=== PATIENT | male | born 1985 | race Caucasian/White ===

== ENCOUNTER 2024-09-09 06:04 | Day surgery (SDC) | payer BC, SELFPAY ==
[2024-09-09] VITALS (7 sets, daily range): BP systolic 109–138; BP diastolic 64–86; BMI 40.8
[2024-09-09] MEDS: CELEBREX 200 MG PO (06:33)
[2024-09-09] MEDS: TYLENOL 1000 MG PO (06:33)
[2024-09-09] MEDS: VANCOCIN 540 MG IV (06:51)
[2024-09-09] MEDS: ROXICODONE 5 MG PO (08:52)
[2024-09-09] MEDS: TORADOL 15 MG IV (08:57)
--- NOTE | 2024-09-09 08:58 | SUR.PHASEI ---
explained to patient to expect some pain, numbness left foot, but some pain/discomfort in heel expected, discharge to [facility]
== END 2024-09-09 09:25 | disposition home or self-care (01) ==
LOC: SDS 06:04
PROVIDERS: ATTENDING PHYSICIAN Student in an Organized Health Care Education/Training Program
PROC: 0J8R3ZZ Division of Left Foot Subcutaneous Tissue and Fascia, Percutaneous Approach (ICD-10-PCS; 2024-09-09)
DX: M72.2 Plantar fascial fibromatosis (principal)
CPT/HCPCS: 29893

== ENCOUNTER 2024-10-14 06:28 | Emergency (ER) | payer BC, SELFPAY ==
[2024-10-14 06:30] VITALS: BP 148/114
--- NOTE | 2024-10-14 06:45 | ED.GENMED ---
History of Present Illness
<Catracho Dowd MD, Resident - Last Filed: 10/14/24 10:46>
General
Chief Complaint: Abdominal Symptoms
Source: patient
Exam Limitations: none
Time Seen by Provider: 10/14/24 06:41
Nursing documentation reviewed up to this point in time: agreed with
History of Present Illness
History of Present Illness:
This is a 39-year-old male history of essential hypertension, anxiety, depression, sleep apnea, heroin abuse (sober since 2016), who presented to the ED with complaints of therapy manager abdominal pain with intermittent vomiting, black liquid stool,
and unintentional weight loss. His abdominal pain is rated 8/10 and resolves within 1 to 2 hours after vomiting. He reports that he has been taking Pepto-Bismol. Patient reports that his symptoms are almost daily for the past 6 months and he has
also noticed a 30lb unintentional weight loss in the past 2 months. He does not drink alcohol but recently started smoking marijuana about 4 months ago to help with his appetite. Patient has a family history of lung cancer in father, ovarian
cancer in mother, and is worried that he has cancer causing his weight loss. He denies chest pain, shortness of breath, palpitations, swelling, fever and chills.
Past History
<Catracho Dowd MD, Resident - Last Filed: 10/14/24 10:46>
Past History
ED Past Medical History: Asthma, HTN, Psychiatric (Depression, substance abuse) and Other (Overdose, heroin abuse)
ED Past Surgical History: Other (Mandible fracture with repair)
Social History
Tobacco: Smoker
Alcohol: None
Drug: IVDA (Heroin (sober since 2016))
Personal: Single
Living: with roommate
Employment: Employed ([employer])
Family History
Family History: Other (Unknown)
Review of Systems
<Catracho Dowd MD, Resident - Last Filed: 10/14/24 10:46>
Review of Systems
Constitutional: Reports no symptoms
EENT: Reports no symptoms
Respiratory: Reports no symptoms
Cardiac: Reports no symptoms
ABD/GI: Reports abdominal pain (LLQ) and diarrhea
: Reports no symptoms
Musculoskeletal: Reports no symptoms
Skin: Reports no symptoms
Neurological: Reports no symptoms
Endocrine: Reports no symptoms
Hematologic/Lymphatic: Reports no symptoms
Psychiatric: Reports depression and anxiety
Phy Exam
<Catracho Dowd MD, Resident - Last Filed: 10/14/24 10:46>
General Physical Exam
General Presentation: well appearing and no apparent distress
General age: appears stated age
General Skin: warm and dry
General Habitus: obese
General Mental: alert
General Hydration: appears well hydrated
ENT Exam
ENT Exam: neck supple and normocephalic
Cardiovascular Exam
Cardiovascular Exam: regular rate/rhythm, no edema, no gallop, no murmur and normal peripheral pulses
Pulmonary Exam
Pulmonary Exam: lungs clear, no respiratory distress, no crackles, no rhonchi, no wheezing and no cough
Gastrointestinal Exam
Gastrointestinal Exam: normal bowel sounds, non tender, soft, no organomegaly, tender (LLQ) and other (Obese abdomen)
Palpation: left lower quadrant: Mild tenderness
Auscultation of Abdomen: normal
Rectal Exam: normal external exam, normal sphincter tone, no rectal mass and no stool
Skin Exam
Skin Exam: normal color and warm/dry
Psychiatric Exam
Psychiatric Exam: normal mood/affect
Course
<Catracho Dowd MD, Resident - Last Filed: 10/14/24 10:46>
Orders/Labs/Results
Orders:
Orders
10/14/24 07:24
Lorazepam [Ativan] 1 mg IV NOW STA
Oseltamivir Phosphate [Tamiflu] 75 mg PO NOW STA
10/14/24 07:38
CT Abd/pelvis W Iv Cont Urgent
Comment: BMI >25
Reason For Exam: LLQ abdominal pain, vomiting
10/14/24 07:53
BMP [Basic Metabolic Panel] Stat
CBC/With Diff [Complete Blood Count/With Diff] Stat
Lactic Acid Stat
Abnormal Lab Results
10/14/24
07:53
WBC 4.0 L 10^3/uL
(4.8-10.8)
MCH 31.5 H pg
(27.0-31.0)
MPV 11.2 H fL
(7.4-10.4)
10/14/24 07:53
10/14/24 07:53
Vital Signs
Initial and Last Documented VS:
Initial Vital Signs
Temp Pulse Resp BP Pulse Ox
98.3 F 74 22 148/114 94
10/14/24 06:30 10/14/24 06:30 10/14/24 06:30 10/14/24 06:30 10/14/24 06:30
Last Documented Vital Signs
Temp Pulse Resp BP Pulse Ox
98.3 F 71 16 118/78 95
10/14/24 06:30 10/14/24 09:30 10/14/24 10:00 10/14/24 09:30 10/14/24 09:30
<Govind Feliciano, DO - Last Filed: 10/14/24 10:41>
Orders/Labs/Results
Orders:
Orders
10/14/24 07:24
Lorazepam [Ativan] 1 mg IV NOW STA
Oseltamivir Phosphate [Tamiflu] 75 mg PO NOW STA
10/14/24 07:38
CT Abd/pelvis W Iv Cont Urgent
Comment: BMI >25
Reason For Exam: LLQ abdominal pain, vomiting
10/14/24 07:53
BMP [Basic Metabolic Panel] Stat
CBC/With Diff [Complete Blood Count/With Diff] Stat
Lactic Acid Stat
Abnormal Lab Results
10/14/24
07:53
WBC 4.0 L 10^3/uL
(4.8-10.8)
MCH 31.5 H pg
(27.0-31.0)
MPV 11.2 H fL
(7.4-10.4)
10/14/24 07:53
10/14/24 07:53
Vital Signs
Initial and Last Documented VS:
Initial Vital Signs
Temp Pulse Resp BP Pulse Ox
98.3 F 74 22 148/114 94
10/14/24 06:30 10/14/24 06:30 10/14/24 06:30 10/14/24 06:30 10/14/24 06:30
Last Documented Vital Signs
Temp Pulse Resp BP Pulse Ox
98.3 F 71 16 118/78 95
10/14/24 06:30 10/14/24 09:30 10/14/24 10:00 10/14/24 09:30 10/14/24 09:30
<Catracho Dowd MD, Resident - Last Filed: 10/14/24 10:46>
MDM/Problems Addressed
Differential Diagnosis Includes:
Marijuana use disorder, methadone side effects,
MDM/Problems Addressed:
39-year-old male who came to the emergency department with complaints of LLQ abdominal pain, unintentional weight loss, intermittent nausea and vomiting, and black stool.
CT abdomen and pelvis pending
Chronic conditions affecting care: HTN and Psychiatric illness (Anxiety, depression sleep apnea)
<Catracho Dowd MD, Resident - Last Filed: 10/14/24 10:46>
*Critical Care Note
Total Time (30-74mins, 75-104mins- exclusive of procedures): Not Applicable
<Catracho Dowd MD, Resident - Last Filed: 10/14/24 10:46>
Update Note
Update Note:
CT abdomen and pelvis with IV contrast
1. Mild circumferential wall thickening in the transverse and descending colon. Diagnostic possibilities are (1) a mild acute colitis or (2) under distention of the colonic lumen.
2. MODERATE to SEVERE DIFFUSE HEPATIC STEATOSIS.
3. Mild hepatosplenomegaly.
4. Moderate discogenic degenerative disease at L5/S1.
ED Attending Note
<Catracho Dowd MD, Resident - Last Filed: 10/14/24 10:46>
-
Portions of this chart may have been created with voice recognition software.� Occasional wrong word or��sound alike� substitutions may have occurred due to the inherent limitations of voice recognition software.
<Govind Feliciano, DO - Last Filed: 10/14/24 10:41>
ED Attending Note
Patient seen and examined by attending physician: Yes
I performed a history and physical exam of patient and discussed management with resident, I reviewed resident's note and agree with documented findings and plan of care.: Yes
ED Attending Note:
I reviewed and agree with history and treatment plan by Catracho Dowd MD. my exam revealed 39-year-old male with mild left lower quadrant abdominal tenderness. No rebound or guarding. CT abdomen pelvis shows hepatosplenomegaly, hepatic steatosis
and mild bowel wall thickening. Doubt acute colitis. Patient stable for discharge and follow-up with primary care. Will refill patient's bupropion for 1 month so he can get to primary care.
Discharge Plan
Departure
Patient Disposition: Home (Routine Discharge)
Date of Disposition: 10/14/24
Time of Disposition: 10:10
Patient with high blood pressure during this ER visit?: No
Condition: Good
Covid-19: Not Applicable
Discharge Problem:
Fatty liver disease, nonalcoholic, Essential hypertension, Degenerative disc disease at L5-S1 level, Apnea, sleep
Instructions: Diarrhea in teens and adults, Metabolic dysfunction-associated steatotic liver disease, Abdominal Pain
Prescriptions:
New
bupropion HCl 300 mg tablet extended release 24 hr
300 mg PO DAILY Qty: 30 0RF
No Action
metoprolol succinate 200 mg Tablet Extended Release 24 Hr
200 mg PO DAILY
bupropion HCl 300 mg Tablet Extended Release 24 Hr
300 mg PO DAILY
fluticasone propion-salmeterol [Advair Diskus] 250-50 mcg/dose Blister With Device
1 inh INHALATION R BIDPRN PRN (Reason: SOB)
lisinopril-hydrochlorothiazide 20-12.5 mg Tablet
1 tab PO DAILY
bismuth subsalicylate [Pepto-Bismol] 262 mg/15 mL Suspension
262 mg PO DAILYPRN PRN (Reason: DIARRHEA)
gabapentin 300 mg Capsule
300 mg PO TID
methadone [Methadone Intensol] 10 mg/mL Concentrate
115 mg PO DAILY
methadone [Methadone Intensol] 10 mg/mL Concentrate
70 mg PO QPM
Referrals:
Judy Bhatti MD, Resident [Family Practice Resident Year2] - Follow up in 1 week
Josselyn Mcknight, [Active] - Follow up in 5-7 days (Patient with abdominal pain, intermittent vomiting with CT ABD/pelvis significant for hepatic steatosis and mild hepatosplenomegaly.)
UNKNOWN - PT DOES,NOT KNOW [Family Provider] -
Interventions
Interventions:
*Risk Screen - Suicide Last Done: 10/14/24 06:30
*General Assessment Last Done: 10/14/24 07:24
*Neglect/Abuse Screening Last Done: 10/14/24 06:30
*ED COVID-19 Vaccine History Last Done: 10/14/24 07:24
YA-Svcejq-Fnsabzgybq Assessment Last Done: 10/14/24 07:24
Discharge Date and Time
Print Language: TOGOLESE
[2024-10-14 07:26] VITALS: BP 108/70
[2024-10-14 08:05] LABS: % Eosinophils 5.2 % (0-6); % Immature Granulocytes 0.5 % (0-0.5); % Lymphocytes 32.2 % (20.5-51.1); % Monocytes 8.5 % (1.7-9.3); % Neutrophils 52.6 % (42.2-75.2); Absolute Eosinophils 0.2 10^3/uL (0-0.7); Absolute Lymphocytes 1.3 10^3/uL (1.2-3.4); Absolute Monocytes 0.3 10^3/uL (0.1-0.6); Absolute Neutrophils 2.1 10^3/uL (1.4-6.5); Hematocrit 47.5 % (39.0-52.0); Hemoglobin 16.1 g/dL (13.0-18.0); Mean Corp Hgb Conc. 33.9 g/dL (33.0-37.0); Mean Corpuscular Hgb 31.5 pg (27.0-31.0); Mean Platelet Volume 11.2 fL (7.4-10.4); Nucleated Red Blood Cells % 0 % (-); Platelet Count 164 10^3/uL (130-400); Red Blood Cell Count 5.11 10^6/uL (4.70-6.10); Red Cell Dist. Width 12.5 % (11.5-14.5)
[2024-10-14 08:15] LABS: Lactic Acid 1.5 mmol/L (0.7-2.0)
[2024-10-14 08:16] LABS: Blood Urea Nitrogen 16 mg/dl (9-20); Calcium 9.1 mg/dl (8.4-10.2); Carbon Dioxide 29 mmol/L (22-30); Chloride 102 mmol/L (98-107); Glucose 96 mg/dl (70-99); Potassium 4.4 mmol/L (3.5-5.1); Sodium 138 mmol/L (135-145); eGFR > 60.00
[2024-10-14 09:30] VITALS: BP 118/78
[2024-10-14 10:51] VITALS: BP 108/74
== END 2024-10-14 10:57 | disposition home or self-care (01) ==
LOC: EMR 06:28
PROVIDERS: Student in an Organized Health Care Education/Training Program; EMERGENCY PHYSICIAN Emergency Medicine
DX: R10.32 Left lower quadrant pain (principal); K76.0 Fatty (change of) liver, not elsewhere classified; I10 Essential (primary) hypertension; G47.30 Sleep apnea, unspecified; M51.379 Other intervertebral disc degeneration, lumbosacral region without mention of lumbar back pain or lower extremity pain; J45.909 Unspecified asthma, uncomplicated; F17.200 Nicotine dependence, unspecified, uncomplicated
CPT/HCPCS: 99284; 74177; 80048; 83605; 85025; Q9967

== ENCOUNTER → 2024-10-14 11:17 | Outpatient (REF) | payer BC, SELFPAY ==
[2024-10-14 13:03] LABS: % Basophils 0.9 % (0-2); % Eosinophils 4.1 % (0-6); % Immature Granulocytes 0.2 % (0-0.5); % Lymphocytes 33.3 % (20.5-51.1); % Monocytes 7.5 % (1.7-9.3); Absolute Basophils 0.1 10^3/uL (0-0.2); Absolute Eosinophils 0.2 10^3/uL (0-0.7); Absolute Lymphocytes 1.8 10^3/uL (1.2-3.4); Absolute Monocytes 0.4 10^3/uL (0.1-0.6); Absolute Neutrophils 2.9 10^3/uL (1.4-6.5); Hematocrit 49.7 % (39.0-52.0); Hemoglobin 17.2 g/dL (13.0-18.0); Mean Corp Hgb Conc. 34.6 g/dL (33.0-37.0); Mean Corpuscular Hgb 31.6 pg (27.0-31.0); Mean Corpuscular Volume 91.4 fL (80.0-94.0); Mean Platelet Volume 11.7 fL (7.4-10.4); Nucleated Red Blood Cells % 0 % (-); Platelet Count 197 10^3/uL (130-400); Red Blood Cell Count 5.44 10^6/uL (4.70-6.10); Red Cell Dist. Width 12.6 % (11.5-14.5); White Blood Cell Count 5.3 10^3/uL (4.8-10.8)
[2024-10-14 13:04] LABS: ALT (SGPT) 83 U/L (0-50); AST (SGOT) 38 U/L (17-59); Albumin 4.8 g/dl (3.5-5.0); Alkaline Phosphatase 60 U/L (38-126); Blood Urea Nitrogen 16 mg/dl (9-20); Calcium 9.7 mg/dl (8.4-10.2); Carbon Dioxide 30 mmol/L (22-30); Chloride 100 mmol/L (98-107); Glucose 88 mg/dl (70-99); HDL Cholesterol 34 mg/dl; LDL Cholesterol, Calculated 142 mg/dl; Potassium 4.7 mmol/L (3.5-5.1); Sodium 139 mmol/L (135-145); Total Bilirubin 0.6 mg/dl (0.2-1.3); Total Cholesterol 248 mg/dl (50-199); Total Protein 7.6 g/dl (6.3-8.2); Triglyceride 364 mg/dl (10-149); Very Low Density Lipoprotein 72 mg/dl (0-30); eGFR > 60.00
[2024-10-14 13:31] LABS: Urine Albumin Trace (Neg - Trace); Urine Bilirubin Negative (Negative); Urine Character Slightly Cloudy (Clear); Urine Color Yellow; Urine Glucose Negative (Negative); Urine Ketone Negative (Negative); Urine Leukocyte Negative (Negative); Urine Nitrite Negative (Negative); Urine Occult Blood Negative (Negative); Urine Urobilinogen Negative (Neg - 1+)
[2024-10-14 14:45] LABS: TSH Reflex To Free T4 1.19 uIU/ml (0.47-4.68)
[2024-10-16 18:35] LABS: % Free Testosterone 1.8 % (1.6-2.9); Free Testosterone 23 pg/mL (47-244); Sex Hormone Binding Globulin 31 nmol/L (17-56); Total Testosterone 130 ng/dL (300-1080)
== END ==
LOC: RAD 11:17
PROVIDERS: ATTENDING PHYSICIAN Physician Assistant
DX: I10 Essential (primary) hypertension (principal); F32.9 Major depressive disorder, single episode, unspecified; E29.1 Testicular hypofunction
CPT/HCPCS: 36415; 80053; 80061; 81003; 84270; 84402; 84403; 84443; 85025

== ENCOUNTER 2024-11-02 09:14 | Emergency (ER) | payer BC, SELFPAY ==
[2024-11-02 09:22] VITALS: BP 159/110
[2024-11-02 10:55] VITALS: BMI 38.0
[2024-11-02 11:24] VITALS: BP 186/105
--- NOTE | 2024-11-02 11:26 | ED.GENMED ---
History of Present Illness
General
Chief Complaint: Abdominal Symptoms
Source: patient
Exam Limitations: none
Time Seen by Provider: 11/02/24 10:57
Nursing documentation reviewed up to this point in time: agreed with
History of Present Illness
History of Present Illness:
Patient is a 39-year-old male presenting to the emergency department with intractable nausea, vomiting, and diarrhea since yesterday. Patient states symptoms started around 12:30 AM last night, waking him from sleep. He describes a somewhat
diffuse abdominal pain and persistent nausea, vomiting, diarrhea. No hematemesis or hematochezia. Patient unable to tolerate any p.o. intake. He has been unable to take his methadone given nausea/vomiting. Patient reports cold sweats although
denies any known fever.
No known sick contacts. No associated chest pain or shortness of breath.
Of note�patient does report that he has been seeing a GI doctor through [facility] given recent weight loss and GI symptoms.
Patient has been on methadone for 8 years.
Past History
Past History
ED Past Medical History: Asthma, HTN, Psychiatric (Depression, substance abuse) and Other (Overdose, heroin abuse)
ED Past Surgical History: Other (Mandible fracture with repair)
Social History
Tobacco: Smoker
Alcohol: None
Drug: IVDA (Heroin (sober since 2017))
Personal: Single
Living: with roommate
Employment: Employed ([employer])
Family History
Family History: Other (Unknown)
Review of Systems
Review of Systems
Allergies reviewed?: Yes
All Other Systems: ROS reviewed and negative except as documented in HPI and ROS
Phy Exam
Physical Exam
Physical Exam:
Vitals: Hypertensive, otherwise stable vital signs. Afebrile
General: In no apparent distress.
Skin: Warm and dry, no rashes or lesions
Head: Normocephalic, atraumatic
Eyes: Sclera nonicteric. EOMs intact. No nystagmus.
Throat: Protecting airway
Neck: Normal ROM, no cervical spine tenderness, no meningismus
Cardiac: Regular rate and rhythm, no murmurs.
Pulm: Normal respiratory effort, no wheezes, rales, rhonchi heard on exam.
Abdomen: Abdomen soft. Mild diffuse abdominal tenderness that rebound tenderness or guarding. No CVA tenderness
Extremities: No evidence of cyanosis or edema
Neuro: AAOx3. Grossly intact.
Psychiatric: Normal affect.
Course
Orders/Labs/Results
Orders:
Orders
11/02/24 11:10
Electrocardiogram (*1) Urgent
Reason for Study: Abdominal Pain
EKG- Treatment ONCE
0.9% Sodium Chloride 1000 ml [Nss] 1,000 ml IV BOLUS
Famotidine [Pepcid] 20 mg IV NOW STA
Ketorolac [Toradol] 15 mg IV NOW STA
Ondansetron Injectable [Zofran] 4 mg IV NOW STA
11/02/24 11:35
Complete Blood Count/With Diff Urgent
Comprehensive Metabolic Panel Urgent
Lipase Urgent
11/02/24 13:09
COVID-19 Antigen Urgent
Source: Nasal Swab
Influenza A+B Rapid Molecular Urgent
RACIEL Source: Nasal Swab
Specimen Description:
Ondansetron Injectable [Zofran] 4 mg IV NOW STA
Abnormal Lab Results
11/02/24
11:35
MCH 31.2 H pg
(27.0-31.0)
MPV 11.1 H fL
(7.4-10.4)
Abs Immat Gran (auto) 0.1 H 10^3/uL
(0-0.05)
Absolute Neuts (auto) 6.7 H 10^3/uL
(1.4-6.5)
Absolute Lymphs (auto) 0.9 L 10^3/uL
(1.2-3.4)
Absolute Monos (auto) 0.8 H 10^3/uL
(0.1-0.6)
Immature Gran % 0.6 H %
(0-0.5)
Neutrophils % 77.6 H %
(42.2-75.2)
Lymphocytes % 10.8 L %
(20.5-51.1)
Carbon Dioxide 31 H mmol/L
(22-30)
Glucose 102 H mg/dl
(70-99)
ALT 65 H U/L
(0-50)
Albumin 5.2 H g/dl
(3.5-5.0)
11/02/24 11:35
11/02/24 11:35
Vital Signs
Initial and Last Documented VS:
Initial Vital Signs
Temp Pulse Resp BP Pulse Ox
98.4 F 51 22 159/110 98
11/02/24 09:22 11/02/24 09:22 11/02/24 09:22 11/02/24 09:22 11/02/24 09:22
Last Documented Vital Signs
Temp Pulse Resp BP Pulse Ox
97.9 F 87 18 152/94 98
11/02/24 11:24 11/02/24 12:08 11/02/24 12:08 11/02/24 13:00 11/02/24 11:24
MDM/Problems Addressed
Differential Diagnosis Includes:
Not limited to: Viral gastroenteritis, pancreatitis, gastritis, cholecystitis, etc.
MDM/Problems Addressed:
39-year-old male presenting with intractable nausea, vomiting, diarrhea since last night. No known fevers or localized abdominal pain. No dysuria. Patient unable to tolerate his prescribed methadone by mouth. Patient initially hypertensive on
arrival although somewhat improved with my assessment. Otherwise signs are stable. He is afebrile. On exam�patient is in no apparent distress. Abdomen is soft with mild diffuse tenderness. No rebound tenderness or guarding. No focal tenderness
on abdominal exam. Cardio/pulmonary assessment unremarkable. Patient is perfusing well. History and exam consistent with possible viral gastroenteritis. Will check labs, viral swabs. Will treat symptoms with Zofran, Toradol, PPI, and fluids.
Will monitor closely reassess.
Update: Labs reviewed. No clinically significant abnormalities. There is no leukocytosis. Overall�low suspicion for acute intra-abdominal infection given patient is afebrile with no leukocytosis and a benign abdominal exam.
Update: Into reassess patient at bedside who states he feels '100 times better than arrival'. He has not had any vomiting since arrival. He received a liter of fluids. He is tolerating water without nausea/vomiting. He was able to take his
methadone by mouth, as well. Abdomen remains soft and minimally diffusely tender. Feel patient is stable for discharge home w/ close return precautions. Will send a few Zofran to take as needed. Recommend Tylenol/Motrin, fluids. He will
follow-up with PCP/GI doctor. Case discussed with attending physician
Chronic conditions affecting care:
Hypertension
Acute Exacerbation and/or Progression of Chronic Illness:
Acutely hypertensive
*Pulse Oximetry
Patient hypoxic: no
*EKG
Interpreted by ED Provider?: Yes
EKG Intrepretation Date: 11/02/24
Interpretation: abnormal
Comparison EKG: changes noted
Heart Rate: 46
Rate: bradycardiac
Rhythm: sinus
Estill: normal axis
Interval: normal QT interval
QRS Pattern: normal QRS
Ischemia: no ischemia
*Clean Up Worker Interpretation
Rate: Clean Up Worker- N/A
*Critical Care Note
Total Time (30-74mins, 75-104mins- exclusive of procedures): Not Applicable
Patient Management
Escalation/DeEscalation of care consider admission/obs:
Admit not indicated
ED Attending Note
-
Portions of this chart may have been created with voice recognition software.� Occasional wrong word or��sound alike� substitutions may have occurred due to the inherent limitations of voice recognition software.
Discharge Plan
Departure
Patient Disposition: Home (Routine Discharge)
Date of Disposition: 11/02/24
Time of Disposition: 14:33
Patient with high blood pressure during this ER visit?: Yes
Condition: Good
Covid-19: Negative COVID-19
Discharge Problem:
Nausea, vomiting and diarrhea
Instructions: Nausea and Vomiting, Adult (DC), Dehydration in adults - ED discharge instructions, BLOOD PRESSURE
Prescriptions:
New
ondansetron 4 mg tablet,disintegrating
4 mg PO TIDPRN PRN (Reason: nausea/vomiting) Qty: 5 0RF
No Action
metoprolol succinate 200 mg Tablet Extended Release 24 Hr
200 mg PO DAILY
bupropion HCl 300 mg Tablet Extended Release 24 Hr
300 mg PO DAILY
fluticasone propion-salmeterol [Advair Diskus] 250-50 mcg/dose Blister With Device
1 inh INHALATION R BIDPRN PRN (Reason: SOB)
lisinopril-hydrochlorothiazide 20-12.5 mg Tablet
1 tab PO DAILY
bismuth subsalicylate [Pepto-Bismol] 262 mg/15 mL Suspension
262 mg PO DAILYPRN PRN (Reason: DIARRHEA)
gabapentin 300 mg Capsule
300 mg PO TID
methadone [Methadone Intensol] 10 mg/mL Concentrate
115 mg PO DAILY
methadone [Methadone Intensol] 10 mg/mL Concentrate
70 mg PO QPM
bupropion HCl 300 mg tablet extended release 24 hr
300 mg PO DAILY Qty: 30 0RF
Referrals:
NONE,* [Family Provider] -
Activity Restrictions/Additional Instructions:
RETURN TO THE EMERGENCY DEPARTMENT WITH ANY FEVERS, INTRACTABLE NAUSEA/VOMITING, SEVERE ABDOMINAL PAIN, SIGNS OF SEVERE DEHYDRATION, WORSENING IN CURRENT SYMPTOMS, OR ANY OTHER CONCERNS
�A prescription for Zofran has been sent to your pharmacy. You can take this up to every 8 hours as needed for persistent nausea/vomiting. You can also take an [id number] omeprazole for the next few weeks to help with acid reflux.
-As discussed�it is very important to stay well-hydrated. Drink plenty of water. Would recommend a bland diet for the next few days and slowly advance as tolerated.
-Continue to take all your medications as prescribed
-Follow-up with your primary care doctor/GI for further evaluation/management as needed
Monitor your symptoms closely return to the emergency department with any acute worsening/new symptoms or any other concerns
Interventions
Interventions:
*Risk Screen - Suicide Last Done: 11/02/24 09:22
*General Assessment Last Done: 11/02/24 09:22
*Neglect/Abuse Screening Last Done: 11/02/24 09:22
ED- Fall Risk Assessment Last Done: 11/02/24 11:32
*ED COVID-19 Vaccine History Last Done: 11/02/24 10:56
*Nursing Disposition Last Done: 11/02/24 15:02
EI-Hoiluv-Siorhjhsan Assessment Last Done: 11/02/24 11:32
Discharge Date and Time
Discharge Date/Time: 11/02/24 15:03
Print Language: SETSWANA
[2024-11-02] MEDS: ZOFRAN 4 MG IV ×2 (11:30→13:15)
[2024-11-02] MEDS: TORADOL 15 MG IV (11:31)
[2024-11-02] MEDS: NSS 1000 IV (11:31)
[2024-11-02] MEDS: PEPCID 20 MG IV (11:31)
[2024-11-02 11:40] VITALS: BP 137/84
[2024-11-02 11:47] LABS: % Basophils 0.7 % (0-2); % Immature Granulocytes 0.6 % (0-0.5); % Lymphocytes 10.8 % (20.5-51.1); % Monocytes 9.3 % (1.7-9.3); % Neutrophils 77.6 % (42.2-75.2); Absolute Basophils 0.1 10^3/uL (0-0.2); Absolute Eosinophils 0.1 10^3/uL (0-0.7); Absolute Immature Granulocytes 0.1 10^3/uL (0-0.05); Absolute Lymphocytes 0.9 10^3/uL (1.2-3.4); Absolute Monocytes 0.8 10^3/uL (0.1-0.6); Absolute Neutrophils 6.7 10^3/uL (1.4-6.5); Hematocrit 45.9 % (39.0-52.0); Hemoglobin 15.6 g/dL (13.0-18.0); Mean Corpuscular Hgb 31.2 pg (27.0-31.0); Mean Corpuscular Volume 91.8 fL (80.0-94.0); Mean Platelet Volume 11.1 fL (7.4-10.4); Nucleated Red Blood Cells % 0 % (-); Platelet Count 203 10^3/uL (130-400); Red Cell Dist. Width 13.2 % (11.5-14.5); White Blood Cell Count 8.6 10^3/uL (4.8-10.8)
[2024-11-02 12:00] VITALS: BP 141/82
[2024-11-02 12:06] LABS: ALT (SGPT) 65 U/L (0-50); AST (SGOT) 35 U/L (17-59); Albumin 5.2 g/dl (3.5-5.0); Alkaline Phosphatase 57 U/L (38-126); Blood Urea Nitrogen 19 mg/dl (9-20); Calcium 9.3 mg/dl (8.4-10.2); Carbon Dioxide 31 mmol/L (22-30); Chloride 101 mmol/L (98-107); Estimated Creatinine Clearance > 125 ml/min; Glucose 102 mg/dl (70-99); Lipase 121 U/L (23-300); Potassium 4.2 mmol/L (3.5-5.1); Sodium 140 mmol/L (135-145); Total Bilirubin 0.6 mg/dl (0.2-1.3); eGFR > 60.00
[2024-11-02 12:08] VITALS: BP 141/82
[2024-11-02 13:00] VITALS: BP 152/94
[2024-11-02 13:48] LABS: COVID-19 Antigen Negative (Negative)
== END 2024-11-02 15:03 | disposition home or self-care (01) ==
LOC: EMR 09:14
PROVIDERS: Physician Assistant; EMERGENCY PHYSICIAN Emergency Medicine
DX: R11.2 Nausea with vomiting, unspecified (principal); R19.7 Diarrhea, unspecified; J45.909 Unspecified asthma, uncomplicated; I10 Essential (primary) hypertension; F17.200 Nicotine dependence, unspecified, uncomplicated
CPT/HCPCS: 96374; 96375; 96376; 96361; 99284; 80053; 83690; 85025; 87502; 87811; 93005

== ENCOUNTER 2024-11-25 06:20 | Day surgery (SDC) | payer BC, SELFPAY | END 2024-11-25 13:33 | disposition home or self-care (01) | LOC: GI 06:20 | PROVIDERS: ATTENDING PHYSICIAN Internal Medicine Gastroenterology | DX: R19.4 Change in bowel habit (principal); R93.3 Abnormal findings on diagnostic imaging of other parts of digestive tract; Z53.8 Procedure and treatment not carried out for other reasons; R11.2 Nausea with vomiting, unspecified; K25.9 Gastric ulcer, unspecified as acute or chronic, without hemorrhage or perforation; K31.89 Other diseases of stomach and duodenum | CPT/HCPCS: 43239; 45378; 88305; 88342 ==

== ENCOUNTER 2025-03-17 06:24 | Day surgery (SDC) | payer BC, SELFPAY | END 2025-03-17 12:01 | disposition home or self-care (01) | LOC: GI 06:24 | PROVIDERS: ATTENDING PHYSICIAN Internal Medicine Gastroenterology | DX: K52.9 Noninfective gastroenteritis and colitis, unspecified (principal); K64.8 Other hemorrhoids | CPT/HCPCS: 45380; 88305 ==

== ENCOUNTER 2025-07-04 06:20 | Day surgery (SDC) | payer BC, SELFPAY | END 2025-07-04 08:56 | disposition home or self-care (01) | LOC: GI 06:20 | PROVIDERS: ATTENDING PHYSICIAN Internal Medicine Gastroenterology | DX: Z09 Encounter for follow-up examination after completed treatment for conditions other than malignant neoplasm (principal); K25.9 Gastric ulcer, unspecified as acute or chronic, without hemorrhage or perforation; K29.70 Gastritis, unspecified, without bleeding | CPT/HCPCS: 43235 ==